=== PATIENT | male | born 1950 | race Caucasian/White ===

== ENCOUNTER → 2019-09-06 | Outpatient (CLI) | payer BC ==
[~2019-09-06] MED LIST: HYDROCHLOROTHIA25 MG PO; JALYN 0.5-0.41 EACH PO; LOPRESSOR25 MG PO; LOTREL 10-20 M1 EACH PO; LOTREL 10-40 M1 EACH PO; MULTAQ 400MG T400 MG PO; REGADENOSON 0.4 MG/5 ML SYR IV ONE; ZOCOR40 MG PO
--- NOTE | 2019-09-07 12:23 | Myoview Stress Test ---
DATE OF STUDY: 09/06/2019 09:01:00 Stress Test - Treadmill ONLY STUDY: Lexiscan Myoview. FINDINGS: The patient had resting perfusion images after an injection of 11 mCi of technetium-99m Myoview. Later due to inability to exercise, he is given Lexiscan 0.4 mg intravenously and shortly afterwards 33 millicuries of technetium-99m Myoview. Perfusion images were taken by rotational tomography. Comparison of resting and Lexiscan stress images show a medium size apical scar extending into the distal septum and the distal anteroapical region. Perfusion in the basilar and lateral rush is good. There is no ischemia detected by differential perfusion. Left ventricular function analysis shows a dilated left ventricle with end-diastolic volume of 173 mL. The systolic function is abnormal with inferoapical akinesis and then there is global hypokinesis. Calculated ejection fraction is 36%. FINAL IMPRESSION: 1. Abnormal Lexiscan Myoview for perfusion. 2. Scar in the medium-size distribution of the apex, distal septum, and distal anteroapical rush. There is no ischemia detected. 3. Abnormal left ventricular function with dilated left ventricle with inferior akinesis, global hypokinesis, and calculated ejection fraction 36%. MD MARI Francois/PARI /[id number]
== END ==
LOC: NM 08:50
PROVIDERS: ATTEND Internal Medicine Cardiovascular Disease
DX: I48.0 Paroxysmal atrial fibrillation (principal); I25.10 Atherosclerotic heart disease of native coronary artery without angina pectoris; Z95.5 Presence of coronary angioplasty implant and graft
CPT/HCPCS: 78452; 93017; A9502; J2785